=== PATIENT | male | born 1950 | race Caucasian/White ===

== ENCOUNTER 2019-07-25 13:20 | Outpatient (CLI) | payer MEDICARE ==
[~2019-07-25 13:20] MED LIST: AMBIEN10 M1 ORAL; ATORVASTATIN CA20 MG ORAL; BENICAR5 MG ORAL; BLOOD THINNER INJ; COUMADIN3 MG ORAL; COUMADIN4 MG ORAL; CYMBALTA; CYMBALTA20 MG ORAL; EPIVIR150 MG ORAL; ISENTRESS400 MG ORAL; LOMOTIL TABLET1 EACH ORAL; LOVENOX10 M2 SUBQ; NORVIR100 MG ORAL; PRESISTA; PREZISTA600 MG ORAL; RANITIDINE HCL150 MG ORAL; SIMVASTATIN40 MG ORAL; TOPROL XL50 MG ORAL; TRAZODONE; TRAZODONE HCL150 MG ORAL; XANAX0.5 MG ORAL; XIFAXAN550 MG ORAL
[2019-07-25] MEDS ORDERED: XANAX0.5 MG ORAL (15:17)
[2019-07-25] MEDS ORDERED: AMBIEN10 M1 ORAL (15:17)
[2019-07-25] MEDS ORDERED: LOMOTIL TABLET1 EACH ORAL (15:17)
--- NOTE | 2019-07-25 19:30 | Consultation ---
DATE OF CONSULTATION: 07/25/2019 CHIEF COMPLAINT: Abdominal pain and bloating. HISTORY OF PRESENT ILLNESS: This is a very pleasant 68-year-old male, known to me from prior office and prior procedures. Last time we saw him was 2015. He has a diagnosis of gastritis, H. pylori negative, has a diverticulosis, small intestinal bacterial overgrowth, and history of HIV. According to the patient, he has been having bloating complications and in the past Xifaxan course is helping a lot. PAST MEDICAL HISTORY: Significant for history of HIV, PE, DVT, gallstones, gastritis, diverticulosis, SIBO. MEDICATIONS: Please see medication reconciliation list. FAMILY HISTORY: Noncontributory. SOCIAL HISTORY: The patient denies any tobacco, alcohol, or drug abuse. REVIEW OF SYSTEMS: A 10-point review of systems was performed and pertinent positives in HPI. PHYSICAL EXAMINATION: VITAL SIGNS: Temperature 98.8, blood pressure 129/52, pulse is 72, respirations 20. HEENT: Normocephalic and atraumatic. Sclerae anicteric. NECK: Supple. No evidence of obvious lymphadenopathy. CARDIOVASCULAR: Regular rate and rhythm. Plus S1 and S2. No obvious murmur. LUNGS: Clear to auscultation bilaterally. ABDOMEN: Positive bowel sounds. Soft and nontender. No rebound. No guarding. No peritoneal sign. EXTREMITIES: No cyanosis. No clubbing. No edema. ASSESSMENT AND PLAN: This is a 68-year-old male with history of HIV, SIBO, gastritis, colonic diverticulosis. PLAN: Trial of the Xifaxan for two months. The patient needs to have repeat colonoscopy in March which would be 5 years. The patient was told to come back if above combination does not work. Zelalem Moreland M.D. DR: Bibiana JOB#: [id number] CC:
== END 2019-07-25 15:51 | disposition home or self-care (01) ==
LOC: PAN 13:20
DX: R10.9 Unspecified abdominal pain (principal); R14.0 Abdominal distension (gaseous); B20 Human immunodeficiency virus [HIV] disease; K57.90 Diverticulosis of intestine, part unspecified, without perforation or abscess without bleeding; Z86.718 Personal history of other venous thrombosis and embolism; Z86.711 Personal history of pulmonary embolism; K56.609 Unspecified intestinal obstruction, unspecified as to partial versus complete obstruction; K29.70 Gastritis, unspecified, without bleeding